=== PATIENT | female | born 1990 | race Asian ===

== ENCOUNTER 2017-04-23 15:27 | Emergency (ER) | payer OTHER ==
[2017-04-23 15:36] VITALS: BP 120/80
== END 2017-04-23 16:44 | disposition home or self-care (01) ==
LOC: ED 15:27
DX: S09.90XA Unspecified injury of head, initial encounter (principal); R42 Dizziness and giddiness; X58.XXXA Exposure to other specified factors, initial encounter; Y93.89 Activity, other specified; Y99.8 Other external cause status; Y92.89 Other specified places as the place of occurrence of the external cause